=== PATIENT | female | born 1980 | race Caucasian/White ===

== ENCOUNTER 2017-02-25 19:18 | Inpatient (IN) | payer OTHER ==
[~2017-02-25] VITALS: Ht 157.5 cm; Wt 61.3 kg
[~2017-02-25 19:18] MED LIST: DEPO-PROVER150 MG/ML IM; FERROUS SULFAT325 M2 PO
[2017-02-25 21:06] LABS: BASOPHIL % 0.5 % (0-2); PLATELET COUNT 288 x10^3mcL (130-400)
[2017-02-25 21:10] LABS: CALCIUM 8.1 mg/dL (8.5-10.1); CARBON DIOXIDE 27.3 mmol/L (21-32); CHLORIDE SERUM 106 mmol/L (98-107); CREATININE SERUM 0.6 mg/dL (0.6-1.0); GFR1 > 60 mL/min; GLUCOSE SERUM 95 mg/dL (74-106); POTASSIUM SERUM 3.7 mmol/L (3.5-5.1); SODIUM SERUM 142 mmol/L (136-145)
[2017-02-25 21:11] LABS: RED CELL DISTRIBUTION WIDTH 19.3 % (11.5-14.5)
[2017-02-25 21:14] LABS: ALKALINE PHOSPHATASE 86 U/L (46-116); ALT/SGPT 25 U/L (14-59); AST/SGOT 15 U/L (15-37); BILIRUBIN TOTAL 0.4 mg/dL (0.20-1.00); TOTAL PROTEIN, SERUM 6.7 g/dL (6.4-8.2)
[2017-02-25 21:15] LABS: ALBUMIN 3.1 g/dL (3.4-5.0)
[2017-02-25 21:30] LABS: rbc morphology (normal/abnorm) ABNORMAL (NORMAL)
[2017-02-25 22:22] LABS: CHOLESTEROL/HDL RATIO 5.3
[2017-02-25 22:30] LABS: T3 TOTAL 0.84 ng/mL
[2017-02-25 22:31] LABS: FREE T4 0.86 ng/dL (0.76-1.46); FREE THYROXINE INDEX 1.9 ug/dL (1.4-4.5)
[2017-02-25 22:41] LABS: UA SPECIFIC GRAVITY 1.015 (1.005-1.035); microscopic required? YES; urine erythrocyte 1+ (NEGATIVE)
[2017-02-25 22:54] VITALS: BP 111/72
[2017-02-25 22:56] VITALS: BP 111/72
[2017-02-26] VITALS (8 sets, daily range): BP systolic 93–121; BP diastolic 55–71
[2017-02-26 05:35] LABS: BASOPHIL % 0.5 % (0-2); PLATELET COUNT 281 x10^3mcL (130-400)
[2017-02-26 05:57] LABS: CALCIUM 8.3 mg/dL (8.5-10.1); CARBON DIOXIDE 25.7 mmol/L (21-32); CHLORIDE SERUM 108 mmol/L (98-107); CREATININE SERUM 0.5 mg/dL (0.6-1.0); GFR1 > 60 mL/min; GLUCOSE SERUM 93 mg/dL (74-106); MAGNESIUM 2.1 mg/dL (1.8-2.4); PHOSPHOROUS 3.5 mg/dL (2.5-4.9); SODIUM SERUM 142 mmol/L (136-145)
[2017-02-26 07:19] LABS: RED CELL DISTRIBUTION WIDTH 19.6 % (11.5-14.5)
[2017-02-26 09:19] LABS: rbc morphology (normal/abnorm) ABNORMAL (NORMAL)
[2017-02-26 21:43] LABS: BASOPHIL % 0.1 % (0-2); PLATELET COUNT 321 x10^3mcL (130-400)
[2017-02-26 21:45] LABS: RED CELL DISTRIBUTION WIDTH 20.9 % (11.5-14.5)
[2017-02-27 06:05] VITALS: BP 125/66
[2017-02-27 07:18] LABS: BASOPHIL % 0.9 % (0-2); PLATELET COUNT 338 x10^3mcL (130-400)
[2017-02-27 07:25] LABS: CALCIUM 8.4 mg/dL (8.5-10.1); CHLORIDE SERUM 107 mmol/L (98-107); CREATININE SERUM 0.6 mg/dL (0.6-1.0); GFR1 > 60 mL/min; GLUCOSE SERUM 100 mg/dL (74-106); POTASSIUM SERUM 3.9 mmol/L (3.5-5.1); SODIUM SERUM 140 mmol/L (136-145)
[2017-02-27 07:26] LABS: ALBUMIN 3.1 g/dL (3.4-5.0); RED CELL DISTRIBUTION WIDTH 20.5 % (11.5-14.5); rbc morphology (normal/abnorm) ABNORMAL (NORMAL)
[2017-02-27 09:10] VITALS: BP 110/65
[2017-02-27 12:49] LABS: BASOPHIL % 0.5 % (0-2); PLATELET COUNT 316 x10^3mcL (130-400)
[2017-02-27 12:50] LABS: RED CELL DISTRIBUTION WIDTH 20.7 % (11.5-14.5); rbc morphology (normal/abnorm) ABNORMAL (NORMAL)
[2017-02-27] MEDS ORDERED: FERG PO (15:33)
[2017-02-27] MEDS ORDERED: VITC PO (15:33)
[2017-02-27 15:42] VITALS: BP 110/65
== END 2017-02-27 15:58 | disposition home or self-care (01) | DRG 517 ==
LOC: ED 19:18 → DU 21:42 → MU 21:42 → DU 22:49 → MU 02-26 07:54
PROVIDERS: Emergency Medicine; Family Medicine; Obstetrics & Gynecology; ADMIT Family Medicine
PROC: 0UDB7ZZ Extraction of Endometrium, Via Natural or Artificial Opening (ICD-10-PCS; 2017-02-26)
PROC: 30233N1 Transfusion of Nonautologous Red Blood Cells into Peripheral Vein, Percutaneous Approach (ICD-10-PCS; principal; 2017-02-26 11:45)
DX: N93.8 Other specified abnormal uterine and vaginal bleeding (principal); R65.10 Systemic inflammatory response syndrome (SIRS) of non-infectious origin without acute organ dysfunction; D62 Acute posthemorrhagic anemia; F17.200 Nicotine dependence, unspecified, uncomplicated; E44.1 Mild protein-calorie malnutrition; E78.5 Hyperlipidemia, unspecified; Z82.49 Family history of ischemic heart disease and other diseases of the circulatory system
CPT/HCPCS: 83880; 84439; J3010; J7030; J7050; P9016; Q0092; Q0163

== ENCOUNTER 2017-03-02 18:24 | Emergency (ER) | payer OTHER ==
[~2017-03-02 18:24] MED LIST changes: +FERG PO; +VITC PO
[2017-03-02 20:10] LABS: BASOPHIL % 0.6 % (0-2); PLATELET COUNT 360 x10^3mcL (130-400)
[2017-03-02 20:13] LABS: RED CELL DISTRIBUTION WIDTH 21.4 % (11.5-14.5)
[2017-03-02 20:18] LABS: CALCIUM 8.7 mg/dL (8.5-10.1); CARBON DIOXIDE 26.9 mmol/L (21-32); CHLORIDE SERUM 104 mmol/L (98-107); CREATININE SERUM 0.5 mg/dL (0.6-1.0); GFR1 > 60 mL/min; GLUCOSE SERUM 82 mg/dL (74-106); POTASSIUM SERUM 3.6 mmol/L (3.5-5.1); SODIUM SERUM 140 mmol/L (136-145)
[2017-03-02 20:23] LABS: ALBUMIN 3.8 g/dL (3.4-5.0); ALKALINE PHOSPHATASE 91 U/L (46-116); ALT/SGPT 28 U/L (14-59); AST/SGOT 24 U/L (15-37); BILIRUBIN TOTAL 0.83 mg/dL (0.20-1.00); TOTAL PROTEIN, SERUM 7.8 g/dL (6.4-8.2)
[2017-03-02 20:36] LABS: rbc morphology (normal/abnorm) ABNORMAL (NORMAL)
[2017-03-02 21:40] VITALS: BP 133/75
== END 2017-03-02 21:23 | disposition home or self-care (01) ==
LOC: ED 18:24
PROVIDERS: Emergency Medicine
DX: N93.8 Other specified abnormal uterine and vaginal bleeding (principal)

== ENCOUNTER 2017-04-24 15:20 | Emergency (ER) | payer OTHER | END 2017-04-24 18:21 | disposition other institution (70) | LOC: ED 15:20 | DX: Z02.89 Encounter for other administrative examinations (principal) ==

== ENCOUNTER 2017-04-24 15:20 | Emergency (ER) | payer OTHER ==
[2017-04-24 18:21] VITALS: BP 136/78
== END 2017-04-24 18:21 | disposition other institution (70) ==
LOC: ED 15:20
DX: S52.92XA Unspecified fracture of left forearm, initial encounter for closed fracture (principal); S52.022A Displaced fracture of olecranon process without intraarticular extension of left ulna, initial encounter for closed fracture; E66.9 Obesity, unspecified; Y35.891A Legal intervention involving other specified means, law enforcement official injured, initial encounter; Y93.89 Activity, other specified; Y92.89 Other specified places as the place of occurrence of the external cause; Y99.8 Other external cause status
CPT/HCPCS: 90715; J1885; J3010; Q0162

== ENCOUNTER 2017-06-03 18:53 | Emergency (ER) | payer OTHER ==
[2017-06-03 20:26] LABS: AMPHETAMINE QUAL UR NONE DETECTED (NEG <=1000)
[2017-06-03 20:36] LABS: PLATELET COUNT 413 x10^3mcL (130-400); RED CELL DISTRIBUTION WIDTH 19.2 % (11.5-14.5)
[2017-06-03 20:40] LABS: CALCIUM 8.9 mg/dL (8.5-10.1); CHLORIDE SERUM 106 mmol/L (98-107); CREATININE SERUM 0.6 mg/dL (0.6-1.0); GFR1 > 60 mL/min; GLUCOSE SERUM 92 mg/dL (74-106); SODIUM SERUM 141 mmol/L (136-145)
[2017-06-03 20:46] LABS: ALBUMIN 3.4 g/dL (3.4-5.0); ALKALINE PHOSPHATASE 102 U/L (46-116); ALT/SGPT 51 U/L (14-59); AST/SGOT 11 U/L (15-37); BILIRUBIN TOTAL 0.49 mg/dL (0.20-1.00); TOTAL PROTEIN, SERUM 7.8 g/dL (6.4-8.2)
[2017-06-03 20:51] LABS: rbc morphology (normal/abnorm) ABNORMAL (NORMAL)
[2017-06-04 15:00] VITALS: BP 133/78
== END 2017-06-04 15:00 ==
LOC: ED 18:53
PROVIDERS: Emergency Medicine
DX: R45.851 Suicidal ideations (principal); F32.9 Major depressive disorder, single episode, unspecified
CPT/HCPCS: 36415; G0480

== ENCOUNTER 2017-08-29 20:55 | Emergency (ER) | payer OTHER ==
[2017-08-29 22:06] LABS: BASOPHIL % 0.2 % (0-2); PLATELET COUNT 375 x10^3mcL (130-400)
[2017-08-29 22:12] LABS: RED CELL DISTRIBUTION WIDTH 18.7 % (11.5-14.5)
[2017-08-29 22:48] LABS: UA SPECIFIC GRAVITY <=1.005 (1.005-1.035); microscopic required? YES; urine erythrocyte 3+ (NEGATIVE)
[2017-08-30 07:16] VITALS: BP 123/57
== END 2017-08-30 03:30 | disposition home or self-care (01) ==
LOC: ED 20:55
PROVIDERS: Emergency Medicine
DX: N93.8 Other specified abnormal uterine and vaginal bleeding (principal); D64.9 Anemia, unspecified
CPT/HCPCS: J1200; J2405; J7040; P9016

== ENCOUNTER 2017-09-04 09:25 | Emergency (ER) | payer OTHER ==
[~2017-09-04] VITALS: Ht 162.6 cm; Wt 78.0 kg
[2017-09-04 11:52] LABS: BASOPHIL % 0.7 % (0-2); PLATELET COUNT 365 x10^3mcL (130-400)
[2017-09-04 11:54] LABS: RED CELL DISTRIBUTION WIDTH 22.9 % (11.5-14.5)
[2017-09-04 12:11] LABS: UA SPECIFIC GRAVITY >=1.030 (1.005-1.035)
[2017-09-04 12:12] LABS: microscopic required? YES; urine erythrocyte 3+ (NEGATIVE)
[2017-09-04 12:57] VITALS: BP 119/75
[2017-09-04 12:59] LABS: CALCIUM 9.1 mg/dL (8.5-10.1); CARBON DIOXIDE 27.8 mmol/L (21-32); CHLORIDE SERUM 105 mmol/L (98-107); CREATININE SERUM 0.7 mg/dL (0.6-1.0); GFR1 > 60 mL/min; GLUCOSE SERUM 92 mg/dL (74-106); POTASSIUM SERUM 3.6 mmol/L (3.5-5.1); SODIUM SERUM 139 mmol/L (136-145)
== END 2017-09-04 13:06 | disposition home or self-care (01) ==
LOC: ED 09:25
PROVIDERS: Emergency Medicine
DX: N92.0 Excessive and frequent menstruation with regular cycle (principal); D64.9 Anemia, unspecified
CPT/HCPCS: 36415; Q0092

== ENCOUNTER 2017-09-04 18:07 | Inpatient (IN) | payer OTHER ==
[~2017-09-04] VITALS: Ht 162.6 cm; Wt 78.1 kg
[2017-09-04 19:44] LABS: BASOPHIL % 0.5 % (0-2); PLATELET COUNT 336 x10^3mcL (130-400)
[2017-09-04 19:58] LABS: CALCIUM 8.6 mg/dL (8.5-10.1); CARBON DIOXIDE 24.1 mmol/L (21-32); CHLORIDE SERUM 106 mmol/L (98-107); CREATININE SERUM 0.6 mg/dL (0.6-1.0); GFR1 > 60 mL/min; GLUCOSE SERUM 98 mg/dL (74-106); POTASSIUM SERUM 3.7 mmol/L (3.5-5.1); SODIUM SERUM 139 mmol/L (136-145)
[2017-09-04 19:58] LABS: AMPHETAMINE QUAL UR NONE DETECTED (NEG <=1000)
[2017-09-04 20:02] LABS: ALBUMIN 3.5 g/dL (3.4-5.0); ALKALINE PHOSPHATASE 82 U/L (46-116); ALT/SGPT 46 U/L (14-59); AST/SGOT 26 U/L (15-37); TOTAL PROTEIN, SERUM 7.8 g/dL (6.4-8.2)
[2017-09-04 20:03] LABS: RED CELL DISTRIBUTION WIDTH 23.3 % (11.5-14.5)
[2017-09-05 01:43] LABS: CHOLESTEROL/HDL RATIO 5.8; MAGNESIUM 2.3 mg/dL (1.8-2.4); PHOSPHOROUS 3.6 mg/dL (2.5-4.9)
[2017-09-05 02:13] LABS: FREE T4 0.92 ng/dL (0.76-1.46); FREE THYROXINE INDEX 2.6 ug/dL (1.4-4.5)
[2017-09-05 06:46] LABS: T3 TOTAL 1.3 ng/mL
[2017-09-05 08:30] VITALS: BP 105/62
[2017-09-05 12:59] VITALS: BP 108/64
[2017-09-05 17:58] VITALS: BP 118/70
[2017-09-05 22:41] VITALS: BP 109/62
[2017-09-06 00:33] LABS: CALCIUM 8.7 mg/dL (8.5-10.1); CARBON DIOXIDE 26.7 mmol/L (21-32); CHLORIDE SERUM 108 mmol/L (98-107); CREATININE SERUM 0.6 mg/dL (0.6-1.0); GFR1 > 60 mL/min; GLUCOSE SERUM 98 mg/dL (74-106); POTASSIUM SERUM 3.4 mmol/L (3.5-5.1); SODIUM SERUM 140 mmol/L (136-145)
[2017-09-06 05:06] VITALS: BP 107/53
[2017-09-06 06:10] LABS: BASOPHIL % 0.6 % (0-2); PLATELET COUNT 343 x10^3mcL (130-400)
[2017-09-06 06:27] LABS: RED CELL DISTRIBUTION WIDTH 23.2 % (11.5-14.5)
[2017-09-06 06:35] LABS: CALCIUM 8.4 mg/dL (8.5-10.1); CARBON DIOXIDE 28.2 mmol/L (21-32); CHLORIDE SERUM 108 mmol/L (98-107); CREATININE SERUM 0.7 mg/dL (0.6-1.0); GFR1 > 60 mL/min; GLUCOSE SERUM 99 mg/dL (74-106); MAGNESIUM 2.3 mg/dL (1.8-2.4); PHOSPHOROUS 3.5 mg/dL (2.5-4.9); POTASSIUM SERUM 3.5 mmol/L (3.5-5.1); SODIUM SERUM 140 mmol/L (136-145)
[2017-09-06 08:03] VITALS: BP 100/59
[2017-09-06 10:20] VITALS: Ht 162.6 cm; Wt 78.1 kg
[2017-09-06 12:10] VITALS: BP 96/57
[2017-09-06 16:34] VITALS: BP 138/65
[2017-09-06 21:12] VITALS: BP 115/67
[2017-09-07 05:44] VITALS: BP 107/62
[2017-09-07 08:25] LABS: BASOPHIL % 0.5 % (0-2); PLATELET COUNT 375 x10^3mcL (130-400)
[2017-09-07 08:29] LABS: RED CELL DISTRIBUTION WIDTH 23.4 % (11.5-14.5)
[2017-09-07 09:00] VITALS: BP 113/56
[2017-09-07 10:09] LABS: rbc morphology (normal/abnorm) ABNORMAL (NORMAL)
[2017-09-07 16:31] VITALS: BP 113/63
[2017-09-08 01:22] VITALS: BP 112/57
[2017-09-08 06:32] VITALS: BP 106/61
[2017-09-08 08:00] VITALS: BP 96/47
[2017-09-08 08:31] LABS: PLATELET COUNT 328 x10^3mcL (130-400)
[2017-09-08 08:37] LABS: RED CELL DISTRIBUTION WIDTH 23.2 % (11.5-14.5)
[2017-09-08 09:21] VITALS: BP 100/56
[2017-09-08 12:01] LABS: ATYPICAL LYMPH 2 %; BAND NEUTROPHIL 1 % (0-10); MONOCYTE 4 % (0-7); SEGMENTED NEUTROPHILS 73 % (37-75); rbc morphology (normal/abnorm) ABNORMAL (NORMAL)
[2017-09-08 12:02] LABS: PLATELET MORPHOLOGY PLATELETS NORMAL
[2017-09-08 12:03] VITALS: BP 101/56
[2017-09-08 15:49] LABS: PLATELET COUNT 327 x10^3mcL (130-400)
[2017-09-08 15:56] LABS: RED CELL DISTRIBUTION WIDTH 23.4 % (11.5-14.5)
[2017-09-08 16:15] LABS: BASOPHIL 1 % (0-2); MONOCYTE 4 % (0-7); SEGMENTED NEUTROPHILS 70 % (37-75); rbc morphology (normal/abnorm) ABNORMAL (NORMAL)
[2017-09-08 16:33] VITALS: BP 103/64
[2017-09-09 05:29] VITALS: BP 114/61
[2017-09-09 06:40] LABS: CALCIUM 8.5 mg/dL (8.5-10.1); CARBON DIOXIDE 26.1 mmol/L (21-32); CHLORIDE SERUM 106 mmol/L (98-107); CREATININE SERUM 0.6 mg/dL (0.6-1.0); GFR1 > 60 mL/min; GLUCOSE SERUM 91 mg/dL (74-106); MAGNESIUM 2.1 mg/dL (1.8-2.4); PHOSPHOROUS 2.9 mg/dL (2.5-4.9); POTASSIUM SERUM 3.2 mmol/L (3.5-5.1); SODIUM SERUM 142 mmol/L (136-145)
[2017-09-09 06:43] LABS: PLATELET COUNT 329 x10^3mcL (130-400)
[2017-09-09 06:49] LABS: RED CELL DISTRIBUTION WIDTH 22.8 % (11.5-14.5)
[2017-09-09 09:01] LABS: rbc morphology (normal/abnorm) ABNORMAL (NORMAL); tear drop cell (dacryocyte) 1+
[2017-09-09 09:43] VITALS: BP 104/49
[2017-09-09 12:45] VITALS: BP 107/61
[2017-09-09 22:09] VITALS: BP 101/59
[2017-09-10 05:19] VITALS: BP 99/53
[2017-09-10 06:21] LABS: CALCIUM 8.6 mg/dL (8.5-10.1); CARBON DIOXIDE 27.6 mmol/L (21-32); CHLORIDE SERUM 107 mmol/L (98-107); CREATININE SERUM 0.6 mg/dL (0.6-1.0); GFR1 > 60 mL/min; GLUCOSE SERUM 87 mg/dL (74-106); POTASSIUM SERUM 3.9 mmol/L (3.5-5.1); SODIUM SERUM 142 mmol/L (136-145)
[2017-09-10 07:12] LABS: BASOPHIL % 0.4 % (0-2); PLATELET COUNT 310 x10^3mcL (130-400)
[2017-09-10 07:14] LABS: RED CELL DISTRIBUTION WIDTH 25.1 % (11.5-14.5)
[2017-09-10 07:17] LABS: rbc morphology (normal/abnorm) ABNORMAL (NORMAL); tear drop cell (dacryocyte) 1+
[2017-09-10 07:30] LABS: RED BLOOD CELLS 2.92 M/mm3 (4.10-5.10)
[2017-09-10 09:22] VITALS: BP 108/57
[2017-09-10 17:33] VITALS: BP 110/60
[2017-09-10 20:18] VITALS: BP 109/72
[2017-09-10 20:37] VITALS: BP 101/56
[2017-09-11 05:46] VITALS: BP 107/63
[2017-09-11 07:14] LABS: BASOPHIL % 0.4 % (0-2); PLATELET COUNT 316 x10^3mcL (130-400)
[2017-09-11 07:18] LABS: RED CELL DISTRIBUTION WIDTH 28.3 % (11.5-14.5)
[2017-09-11 07:26] LABS: CALCIUM 8.7 mg/dL (8.5-10.1); CHLORIDE SERUM 104 mmol/L (98-107); CREATININE SERUM 0.6 mg/dL (0.6-1.0); GFR1 > 60 mL/min; GLUCOSE SERUM 72 mg/dL (74-106); MAGNESIUM 2.1 mg/dL (1.8-2.4); POTASSIUM SERUM 3.5 mmol/L (3.5-5.1); SODIUM SERUM 136 mmol/L (136-145); rbc morphology (normal/abnorm) ABNORMAL (NORMAL)
[2017-09-11 07:27] LABS: tear drop cell (dacryocyte) 1+
[2017-09-11 10:28] VITALS: BP 100/58
[2017-09-11 14:53] VITALS: BP 82/37
[2017-09-11 17:53] VITALS: BP 92/37
[2017-09-11 22:46] VITALS: BP 117/71
[2017-09-12 06:05] VITALS: BP 109/64
[2017-09-12 07:09] LABS: BASOPHIL % 0.5 % (0-2); PLATELET COUNT 311 x10^3mcL (130-400)
[2017-09-12 07:16] LABS: RED CELL DISTRIBUTION WIDTH 33.1 % (11.5-14.5)
[2017-09-12 07:17] LABS: rbc morphology (normal/abnorm) ABNORMAL (NORMAL); tear drop cell (dacryocyte) 1+
[2017-09-12 08:54] VITALS: BP 100/55
[2017-09-12 17:04] VITALS: BP 104/58
[2017-09-12 21:12] VITALS: BP 94/63
[2017-09-13 04:41] VITALS: BP 111/63
[2017-09-13 06:47] LABS: BASOPHIL % 0.5 % (0-2); PLATELET COUNT 307 x10^3mcL (130-400)
[2017-09-13 08:47] VITALS: BP 101/53
[2017-09-13 10:37] LABS: rbc morphology (normal/abnorm) ABNORMAL (NORMAL)
[2017-09-13 10:38] LABS: tear drop cell (dacryocyte) 2+
[2017-09-13 16:30] VITALS: BP 101/61
[2017-09-13 20:32] VITALS: BP 115/71
[2017-09-14 05:56] VITALS: BP 110/64
[2017-09-14 06:33] LABS: BASOPHIL % 0.6 % (0-2); PLATELET COUNT 301 x10^3mcL (130-400)
[2017-09-14 16:36] VITALS: BP 110/64
[2017-09-14] MEDS ORDERED: SERTRALINE50 M1 PO (16:38)
[2017-09-14] MEDS ORDERED: QUETIAPINE FUMA25 M1 PO (16:38)
[2017-09-14] MEDS ORDERED: AMB5 PO (16:39)
== END 2017-09-14 18:13 | DRG 751 ==
LOC: ED 18:07 → DU 09-05 00:05 → MU 09-06 17:27
PROVIDERS: Emergency Medicine; Family Medicine; Family Medicine Sports Medicine; ADMIT Family Medicine
DX: F33.9 Major depressive disorder, recurrent, unspecified (principal); R45.851 Suicidal ideations; F17.210 Nicotine dependence, cigarettes, uncomplicated; E78.2 Mixed hyperlipidemia; D50.9 Iron deficiency anemia, unspecified; N92.0 Excessive and frequent menstruation with regular cycle; Z68.28 Body mass index [BMI] 28.0-28.9, adult
CPT/HCPCS: 83880; 84439; 94150; G0480; J1050; J1410; J2916; J7030; Q0092

== ENCOUNTER 2018-02-21 05:55 | Inpatient (IN) | payer OTHER ==
[~2018-02-21] VITALS: Ht 162.6 cm; Wt 71.0 kg
[~2018-02-21 05:55] MED LIST changes: +AMB5 PO; +QUETIAPINE FUMA25 M1 PO; +SERTRALINE50 M1 PO
[2018-02-21 06:41] LABS: microscopic required? NO
[2018-02-21 06:48] LABS: BASOPHIL % 0.4 % (0-2); PLATELET COUNT 337 x10^3mcL (130-400)
[2018-02-21 07:08] LABS: RED CELL DISTRIBUTION WIDTH 16.6 % (11.5-14.5)
[2018-02-21 07:09] LABS: rbc morphology (normal/abnorm) ABNORMAL (NORMAL)
[2018-02-21 07:12] LABS: CALCIUM 8.7 mg/dL (8.5-10.1); CREATININE SERUM 0.6 mg/dL (0.6-1.0); GFR1 > 60 mL/min; POTASSIUM SERUM 3.7 mmol/L (3.5-5.1); SODIUM SERUM 135 mmol/L (136-145)
[2018-02-21 07:17] LABS: ALBUMIN 3.6 g/dL (3.4-5.0); ALKALINE PHOSPHATASE 91 U/L (46-116); ALT/SGPT 30 U/L (14-59); AST/SGOT 17 U/L (15-37); BILIRUBIN TOTAL 0.57 mg/dL (0.20-1.00); TOTAL PROTEIN, SERUM 7.8 g/dL (6.4-8.2)
[2018-02-21 07:24] LABS: CARBON DIOXIDE 23.1 mmol/L (21-32); CHLORIDE SERUM 102 mmol/L (98-107); GLUCOSE SERUM 98 mg/dL (74-106)
[2018-02-21 07:48] LABS: AMPHETAMINE QUAL UR NONE DETECTED (NEG <=1000)
[2018-02-21 07:49] LABS: urine erythrocyte NEGATIVE (NEGATIVE)
[2018-02-21 10:00] LABS: T3 TOTAL 1.12 ng/mL
[2018-02-21 10:15] LABS: FREE T4 0.89 ng/dL (0.76-1.46); MAGNESIUM 2.1 mg/dL (1.8-2.4); PHOSPHOROUS 3.8 mg/dL (2.5-4.9); T4(THYROXINE) 6.4 ug/dL (4.7-13.3)
[2018-02-21 10:16] LABS: CHOLESTEROL/HDL RATIO 5.3
[2018-02-21 20:59] VITALS: BP 140/68
[2018-02-22 04:54] VITALS: BP 107/65
[2018-02-22 06:31] LABS: BASOPHIL % 0.4 % (0-2); PLATELET COUNT 335 x10^3mcL (130-400)
[2018-02-22 06:35] LABS: CARBON DIOXIDE 25.2 mmol/L (21-32); CHLORIDE SERUM 103 mmol/L (98-107); CREATININE SERUM 0.6 mg/dL (0.6-1.0); GFR1 > 60 mL/min; GLUCOSE SERUM 97 mg/dL (74-106); MAGNESIUM 2.3 mg/dL (1.8-2.4); PHOSPHOROUS 4.5 mg/dL (2.5-4.9); POTASSIUM SERUM 3.8 mmol/L (3.5-5.1); SODIUM SERUM 138 mmol/L (136-145)
[2018-02-22 06:37] LABS: RED CELL DISTRIBUTION WIDTH 16.5 % (11.5-14.5)
[2018-02-22 08:20] VITALS: BP 115/72
[2018-02-22 17:58] VITALS: BP 111/66
[2018-02-22 20:18] VITALS: BP 116/74
[2018-02-23 04:52] VITALS: Ht 162.6 cm; Wt 71.0 kg
[2018-02-23 05:39] VITALS: BP 110/70
[2018-02-23 08:57] VITALS: BP 124/79
[2018-02-23 14:41] VITALS: BP 108/72
[2018-02-23 18:37] VITALS: BP 113/71
[2018-02-23 22:42] VITALS: BP 106/78
[2018-02-24 06:36] VITALS: BP 113/75
[2018-02-24 09:01] VITALS: BP 122/74
[2018-02-24 13:50] VITALS: BP 124/71
[2018-02-24 17:30] VITALS: BP 121/73
[2018-02-24 20:58] VITALS: BP 119/78
[2018-02-25 06:39] VITALS: BP 101/59
[2018-02-25 09:31] VITALS: BP 108/58
[2018-02-25 13:28] VITALS: BP 97/54
[2018-02-25 20:07] VITALS: BP 120/74
[2018-02-26 05:30] VITALS: BP 97/57
[2018-02-26 10:25] VITALS: BP 111/80
[2018-02-26 17:20] VITALS: BP 114/71
[2018-02-27 05:47] VITALS: BP 111/72
[2018-02-27 07:53] LABS: BASOPHIL % 0.4 % (0-2); PLATELET COUNT 317 x10^3mcL (130-400)
[2018-02-27 07:57] LABS: RED CELL DISTRIBUTION WIDTH 16.4 % (11.5-14.5)
[2018-02-27 07:58] LABS: rbc morphology (normal/abnorm) ABNORMAL (NORMAL)
[2018-02-27 08:24] LABS: CALCIUM 8.7 mg/dL (8.5-10.1); CHLORIDE SERUM 102 mmol/L (98-107); CREATININE SERUM 0.6 mg/dL (0.6-1.0); GFR1 > 60 mL/min; GLUCOSE SERUM 91 mg/dL (74-106); MAGNESIUM 2.1 mg/dL (1.8-2.4); PHOSPHOROUS 4.6 mg/dL (2.5-4.9); POTASSIUM SERUM 3.8 mmol/L (3.5-5.1); SODIUM SERUM 136 mmol/L (136-145)
[2018-02-27 09:50] VITALS: BP 106/70
[2018-02-27 14:15] LABS: IRON 20 ug/dL (50-170); TOTAL IRON BINDING CAPACITY 449 ug/dL (250-450)
[2018-02-27 14:27] LABS: RED BLOOD CELLS 4.72 M/mm3 (4.10-5.10)
[2018-02-27 17:50] VITALS: BP 107/73
[2018-02-27 21:58] VITALS: BP 105/73
[2018-02-28 06:41] VITALS: BP 107/69
[2018-02-28 09:41] VITALS: BP 94/60
[2018-02-28 17:38] VITALS: BP 118/76
[2018-02-28 21:04] VITALS: BP 120/70
[2018-03-01 05:34] VITALS: BP 106/75
[2018-03-01 08:06] VITALS: BP 95/54
[2018-03-01] MEDS ORDERED: PROZAC40 MG PO (12:06)
[2018-03-01] MEDS ORDERED: ABILIFY10 M2 PO (12:06)
== END 2018-03-01 13:05 | disposition home or self-care (01) | DRG 751 ==
LOC: ED 05:55 → DU 17:25 → EDBEDREQ 17:25 → MU 17:25 → DU 20:52 → MU 02-22 07:56
PROVIDERS: Family Medicine; Family Medicine Sports Medicine; Specialist
DX: F33.2 Major depressive disorder, recurrent severe without psychotic features (principal); E87.1 Hypo-osmolality and hyponatremia; R45.851 Suicidal ideations; E04.1 Nontoxic single thyroid nodule; E78.5 Hyperlipidemia, unspecified; R73.03 Prediabetes; N92.0 Excessive and frequent menstruation with regular cycle; F17.210 Nicotine dependence, cigarettes, uncomplicated; D64.9 Anemia, unspecified; Z53.29 Procedure and treatment not carried out because of patient's decision for other reasons; D72.829 Elevated white blood cell count, unspecified; F10.10 Alcohol abuse, uncomplicated; Z82.49 Family history of ischemic heart disease and other diseases of the circulatory system
CPT/HCPCS: 83880; 84439; C1729; G0480; Q0092

== ENCOUNTER 2018-04-28 15:30 | Inpatient (IN) | payer OTHER ==
[~2018-04-28] VITALS: Ht 162.6 cm; Wt 82.1 kg
[~2018-04-28 15:30] MED LIST changes: +ABILIFY10 M2 PO; +ABILIFY20 M1 PO; +PROZ20 PO; +PROZAC40 MG PO
[2018-04-28 16:45] LABS: BASOPHIL % 0.4 % (0-2); PLATELET COUNT 384 x10^3mcL (130-400)
[2018-04-28 16:51] LABS: CALCIUM 9.4 mg/dL (8.5-10.1); CHLORIDE SERUM 106 mmol/L (98-107); CREATININE SERUM 0.6 mg/dL (0.6-1.0); GFR1 > 60 mL/min; GLUCOSE SERUM 99 mg/dL (74-106); POTASSIUM SERUM 3.6 mmol/L (3.5-5.1); SODIUM SERUM 142 mmol/L (136-145)
[2018-04-28 16:55] LABS: ALBUMIN 3.6 g/dL (3.4-5.0); ALKALINE PHOSPHATASE 120 U/L (46-116); ALT/SGPT 42 U/L (14-59); AST/SGOT 24 U/L (15-37); BILIRUBIN TOTAL 0.76 mg/dL (0.20-1.00); TOTAL PROTEIN, SERUM 8.2 g/dL (6.4-8.2)
[2018-04-28 16:56] LABS: RED CELL DISTRIBUTION WIDTH 17.9 % (11.5-14.5)
[2018-04-28 16:59] LABS: AMPHETAMINE QUAL UR NONE DETECTED (See below)
[2018-04-28 17:06] LABS: FREE T4 0.94 ng/dL (0.76-1.46); FREE THYROXINE INDEX 2.4 ug/dL (1.4-4.5); T4(THYROXINE) 7.6 ug/dL (4.7-13.3)
[2018-04-28 17:33] LABS: T3 TOTAL 1.03 ng/mL
[2018-04-28] MEDS ORDERED: NATURAL IRON65 MG (21:56)
[2018-04-28 23:39] VITALS: BP 117/73
[2018-04-29 01:10] LABS: MAGNESIUM 2.1 mg/dL (1.8-2.4); PHOSPHOROUS 3.9 mg/dL (2.5-4.9)
[2018-04-29 08:42] VITALS: BP 110/65
[2018-04-29 12:38] VITALS: BP 109/66
[2018-04-29 18:00] VITALS: BP 91/63
[2018-04-29 18:03] LABS: microscopic required? NO
[2018-04-29 18:13] LABS: UA SPECIFIC GRAVITY 1.025 (1.005-1.035); urine erythrocyte NEGATIVE (NEGATIVE)
[2018-04-29 22:10] VITALS: BP 109/70
[2018-04-30 06:03] VITALS: BP 115/62
[2018-04-30 10:59] VITALS: BP 101/68
[2018-04-30 13:24] VITALS: BP 112/64
[2018-04-30 17:43] VITALS: BP 115/70
[2018-04-30 21:38] VITALS: BP 116/78
[2018-05-01 05:45] VITALS: BP 102/62
[2018-05-01 13:55] VITALS: BP 118/56
[2018-05-01 16:29] VITALS: BP 105/64
[2018-05-01 22:19] VITALS: BP 112/76
[2018-05-02 06:52] VITALS: BP 102/68
[2018-05-02 09:10] VITALS: BP 111/62
[2018-05-02 18:46] VITALS: BP 113/68
[2018-05-02 23:01] VITALS: BP 123/70
[2018-05-03 05:51] VITALS: BP 117/71
[2018-05-03 15:00] VITALS: BP 110/71
[2018-05-03 22:05] VITALS: BP 111/56
[2018-05-04 06:05] VITALS: BP 102/61
[2018-05-04 11:03] VITALS: BP 108/56
[2018-05-04 20:45] VITALS: BP 115/69
[2018-05-05 05:44] VITALS: BP 107/72
[2018-05-05 09:36] VITALS: BP 108/58
[2018-05-05 16:06] VITALS: BP 102/57
[2018-05-05 21:05] VITALS: BP 128/71
[2018-05-06 09:53] VITALS: BP 107/53
[2018-05-06 17:06] VITALS: BP 116/60
[2018-05-06 21:17] VITALS: BP 117/60
[2018-05-07 05:53] VITALS: BP 123/64
[2018-05-07 16:45] VITALS: BP 117/76
[2018-05-07 20:08] VITALS: BP 122/72
[2018-05-08 05:22] VITALS: BP 106/66
[2018-05-08 17:58] VITALS: BP 112/72
[2018-05-08 17:59] VITALS: BP 117/72
[2018-05-08 20:44] VITALS: BP 135/73
[2018-05-09 04:16] VITALS: BP 112/70
[2018-05-09 09:15] VITALS: BP 106/59
[2018-05-09 17:28] VITALS: BP 120/63
[2018-05-09 19:24] VITALS: BP 115/73
[2018-05-10 06:03] VITALS: BP 105/65
[2018-05-10 09:34] VITALS: BP 96/55
[2018-05-10 15:52] VITALS: BP 122/76
[2018-05-10 21:49] VITALS: BP 95/72
[2018-05-11 06:01] VITALS: BP 97/65
[2018-05-11] MEDS ORDERED: FER300 PO (19:19)
[2018-05-11] MEDS ORDERED: VITC PO (19:19)
[2018-05-11] MEDS ORDERED: ABILIFY10 M2 PO (19:19)
[2018-05-11] MEDS ORDERED: PROZ20 PO (19:19)
[2018-05-11 19:35] VITALS: BP 97/65
== END 2018-05-11 20:07 | disposition home or self-care (01) | DRG 52 ==
LOC: ED 15:30 → DU 22:19 → MU 22:19 → DU 23:29 → MU 05-01 19:39
PROVIDERS: Emergency Medicine; Family Medicine
DX: G93.41 Metabolic encephalopathy (principal); R45.851 Suicidal ideations; K76.0 Fatty (change of) liver, not elsewhere classified; F31.63 Bipolar disorder, current episode mixed, severe, without psychotic features; D64.9 Anemia, unspecified; R73.03 Prediabetes; E78.5 Hyperlipidemia, unspecified; E66.9 Obesity, unspecified; Z68.30 Body mass index [BMI] 30.0-30.9, adult; E04.1 Nontoxic single thyroid nodule; F15.93 Other stimulant use, unspecified with withdrawal; F17.210 Nicotine dependence, cigarettes, uncomplicated; F41.8 Other specified anxiety disorders; Z72.89 Other problems related to lifestyle; Z79.899 Other long term (current) drug therapy; Z91.14 Patient's other noncompliance with medication regimen
CPT/HCPCS: 83880; 84439; G0480; J7030; Q0092

== ENCOUNTER 2018-06-18 21:08 | Emergency (ER) | payer OTHER ==
[~2018-06-18] VITALS: Ht 162.6 cm; Wt 83.5 kg
[~2018-06-18 21:08] MED LIST changes: +FER300 PO; +NATURAL IRON65 MG
[2018-06-18 21:16] VITALS: Ht 162.6 cm; Wt 83.5 kg
[2018-06-19 00:37] LABS: BASOPHIL % 0.9 % (0-2); PLATELET COUNT 323 x10^3mcL (130-400)
[2018-06-19 00:43] LABS: RED CELL DISTRIBUTION WIDTH 23.5 % (11.5-14.5)
[2018-06-19 00:44] LABS: CALCIUM 8.1 mg/dL (8.5-10.1); CARBON DIOXIDE 22.7 mmol/L (21-32); CHLORIDE SERUM 106 mmol/L (98-107); CREATININE SERUM 0.6 mg/dL (0.6-1.0); GFR1 > 60 mL/min; GLUCOSE SERUM 89 mg/dL (74-106); POTASSIUM SERUM 3.4 mmol/L (3.5-5.1); SODIUM SERUM 142 mmol/L (136-145)
[2018-06-19 00:50] LABS: ALBUMIN 3.6 g/dL (3.4-5.0); ALKALINE PHOSPHATASE 90 U/L (46-116); ALT/SGPT 70 U/L (14-59); AST/SGOT 39 U/L (15-37); BILIRUBIN TOTAL 0.44 mg/dL (0.20-1.00); TOTAL PROTEIN, SERUM 7.7 g/dL (6.4-8.2)
[2018-06-19 02:09] LABS: rbc morphology (normal/abnorm) ABNORMAL (NORMAL)
[2018-06-19 02:10] LABS: tear drop cell (dacryocyte) 1+
[2018-06-19 14:38] LABS: AMPHETAMINE QUAL UR NONE DETECTED (See below)
[2018-06-19 19:26] VITALS: BP 125/81
== END 2018-06-19 19:24 ==
LOC: ED 21:08
PROVIDERS: Emergency Medicine
DX: R45.851 Suicidal ideations (principal); F41.9 Anxiety disorder, unspecified; F32.9 Major depressive disorder, single episode, unspecified; Z86.2 Personal history of diseases of the blood and blood-forming organs and certain disorders involving the immune mechanism
CPT/HCPCS: 36415; G0480; Q0092

== ENCOUNTER 2018-06-30 17:19 | Inpatient (IN) | payer OTHER ==
[~2018-06-30] VITALS: Ht 162.6 cm; Wt 82.1 kg
[2018-06-30 18:37] LABS: BASOPHIL % 0.4 % (0-2); PLATELET COUNT 325 x10^3mcL (130-400)
[2018-06-30 18:43] LABS: RED CELL DISTRIBUTION WIDTH 23.9 % (11.5-14.5)
[2018-06-30 18:53] LABS: CARBON DIOXIDE 22.8 mmol/L (21-32); CHLORIDE SERUM 104 mmol/L (98-107); CREATININE SERUM 0.7 mg/dL (0.6-1.0); GFR1 > 60 mL/min; GLUCOSE SERUM 81 mg/dL (74-106); POTASSIUM SERUM 3.5 mmol/L (3.5-5.1); SODIUM SERUM 138 mmol/L (136-145)
[2018-06-30 18:56] LABS: ALBUMIN 3.8 g/dL (3.4-5.0); ALKALINE PHOSPHATASE 98 U/L (46-116); ALT/SGPT 53 U/L (14-59); AST/SGOT 32 U/L (15-37)
[2018-06-30 18:57] LABS: TOTAL PROTEIN, SERUM 8.5 g/dL (6.4-8.2)
[2018-06-30 19:23] LABS: AMPHETAMINE QUAL UR NONE DETECTED (See below)
[2018-07-01 20:35] VITALS: BP 124/79
[2018-07-02 06:06] VITALS: BP 112/67
[2018-07-02 10:05] VITALS: BP 95/45
[2018-07-02 13:32] VITALS: BP 128/70
[2018-07-02 18:14] VITALS: BP 120/68
[2018-07-02 21:07] VITALS: BP 110/63
[2018-07-03 05:58] VITALS: BP 97/66
[2018-07-03 09:09] VITALS: BP 111/70
[2018-07-03 14:40] VITALS: BP 118/70
[2018-07-03 17:23] VITALS: BP 112/65
[2018-07-03 20:48] VITALS: BP 115/65
[2018-07-03 21:00] VITALS: BP 125/82
[2018-07-04 05:29] VITALS: BP 100/62
[2018-07-04 09:55] VITALS: BP 104/65
[2018-07-04 18:02] VITALS: BP 109/68
[2018-07-04 20:52] VITALS: BP 115/70
[2018-07-05 05:29] VITALS: BP 104/64
[2018-07-05 08:39] VITALS: BP 104/73
[2018-07-05 16:01] VITALS: BP 111/68
== END 2018-07-05 18:50 | disposition left against medical advice (07) | DRG 751 ==
LOC: ED 17:19 → MU 07-01 16:21
PROVIDERS: Emergency Medicine
DX: F32.2 Major depressive disorder, single episode, severe without psychotic features (principal); R45.851 Suicidal ideations; D64.9 Anemia, unspecified; F41.9 Anxiety disorder, unspecified; Z53.21 Procedure and treatment not carried out due to patient leaving prior to being seen by health care provider; F17.210 Nicotine dependence, cigarettes, uncomplicated; Z82.49 Family history of ischemic heart disease and other diseases of the circulatory system
CPT/HCPCS: G0480

== ENCOUNTER 2018-08-16 16:09 | Emergency (ER) | payer OTHER ==
[~2018-08-16] VITALS: Ht 162.6 cm; Wt 83.5 kg
[2018-08-16 16:17] VITALS: BP 126/79
[2018-08-16 17:14] LABS: BASOPHIL % 0.4 % (0-2); PLATELET COUNT 329 x10^3mcL (130-400)
[2018-08-16 17:18] LABS: RED CELL DISTRIBUTION WIDTH 18.3 % (11.5-14.5)
== END 2018-08-16 18:25 | disposition home or self-care (01) ==
LOC: ED 16:09
PROVIDERS: Emergency Medicine
DX: N92.0 Excessive and frequent menstruation with regular cycle (principal); F17.210 Nicotine dependence, cigarettes, uncomplicated; F41.9 Anxiety disorder, unspecified
CPT/HCPCS: 36415; 99406

== ENCOUNTER 2019-02-22 16:33 | Inpatient (IN) | payer OTHER ==
[~2019-02-22] VITALS: Ht 162.6 cm; Wt 80.0 kg
[2019-02-22 17:41] LABS: PLATELET COUNT 412 x10^3mcL (130-400); RED CELL DISTRIBUTION WIDTH 16.3 % (11.5-14.5)
[2019-02-22 17:45] LABS: CALCIUM 9.2 mg/dL (8.5-10.1); CARBON DIOXIDE 26.8 mmol/L (21-32); CHLORIDE SERUM 104 mmol/L (98-107); CREATININE SERUM 0.6 mg/dL (0.6-1.0); GFR1 > 60 mL/min; GLUCOSE SERUM 109 mg/dL (74-106); POTASSIUM SERUM 3.3 mmol/L (3.5-5.1); SODIUM SERUM 140 mmol/L (136-145)
[2019-02-22 17:50] LABS: ALBUMIN 3.8 g/dL (3.4-5.0); ALKALINE PHOSPHATASE 108 U/L (46-116); ALT/SGPT 30 U/L (14-59); AST/SGOT 16 U/L (15-37); BILIRUBIN TOTAL 0.8 mg/dL (0.20-1.00); TOTAL PROTEIN, SERUM 8.5 g/dL (6.4-8.2)
[2019-02-22 18:01] LABS: UA SPECIFIC GRAVITY >=1.030 (1.005-1.035); microscopic required? YES; urine erythrocyte 2+ (NEGATIVE)
[2019-02-22 18:06] LABS: AMPHETAMINE QUAL UR NONE DETECTED (See below)
[2019-02-23 17:37] VITALS: BP 113/68
[2019-02-23 17:43] VITALS: Ht 162.6 cm; Wt 80.0 kg
[2019-02-23 20:51] VITALS: BP 113/67
[2019-02-24 06:15] LABS: CALCIUM 8.8 mg/dL (8.5-10.1); CARBON DIOXIDE 25.3 mmol/L (21-32); CHLORIDE SERUM 103 mmol/L (98-107); CREATININE SERUM 0.6 mg/dL (0.6-1.0); GFR1 > 60 mL/min; GLUCOSE SERUM 159 mg/dL (74-106); MAGNESIUM 2.3 mg/dL (1.8-2.4); PHOSPHOROUS 3.6 mg/dL (2.5-4.9); SODIUM SERUM 139 mmol/L (136-145)
[2019-02-24 06:45] LABS: BASOPHIL % 0.4 % (0-2); PLATELET COUNT 373 x10^3mcL (130-400)
[2019-02-24 06:54] LABS: RED CELL DISTRIBUTION WIDTH 15.9 % (11.5-14.5)
[2019-02-24 09:30] VITALS: BP 128/74
[2019-02-24 12:18] LABS: CHOLESTEROL/HDL RATIO 6.4; MAGNESIUM 2.3 mg/dL (1.8-2.4); PHOSPHOROUS 3.7 mg/dL (2.5-4.9)
[2019-02-24 18:06] VITALS: BP 113/68
[2019-02-24 21:00] VITALS: BP 110/62
[2019-02-25 06:07] VITALS: BP 111/68
[2019-02-25 09:09] VITALS: BP 99/58
[2019-02-25 10:04] LABS: CALCIUM 9.1 mg/dL (8.5-10.1); CARBON DIOXIDE 24.5 mmol/L (21-32); CHLORIDE SERUM 106 mmol/L (98-107); CREATININE SERUM 0.6 mg/dL (0.6-1.0); GFR1 > 60 mL/min; GLUCOSE SERUM 107 mg/dL (74-106); MAGNESIUM 2.3 mg/dL (1.8-2.4); PHOSPHOROUS 4.3 mg/dL (2.5-4.9); POTASSIUM SERUM 3.5 mmol/L (3.5-5.1); SODIUM SERUM 140 mmol/L (136-145)
[2019-02-25 12:30] LABS: BASOPHIL % 0.5 % (0-2); PLATELET COUNT 394 x10^3mcL (130-400)
[2019-02-25 12:48] LABS: RED CELL DISTRIBUTION WIDTH 16.3 % (11.5-14.5)
[2019-02-25 17:19] VITALS: BP 112/66
[2019-02-25 21:21] VITALS: BP 117/68
[2019-02-26 05:45] VITALS: BP 104/70
[2019-02-26 09:56] VITALS: BP 88/44
[2019-02-26 11:59] VITALS: BP 120/70
[2019-02-26 17:28] VITALS: BP 115/68
[2019-02-26 21:10] VITALS: BP 118/69
[2019-02-27 05:47] VITALS: BP 110/65
[2019-02-27 09:00] VITALS: BP 106/58
[2019-02-27 17:30] VITALS: BP 119/65
[2019-02-27 19:46] VITALS: BP 108/72
[2019-02-28 06:24] VITALS: BP 100/65
[2019-02-28 18:00] VITALS: BP 134/59
[2019-02-28 22:00] VITALS: BP 119/47
[2019-03-01 06:04] VITALS: BP 107/88
[2019-03-01 10:01] VITALS: BP 107/69
[2019-03-01 18:12] VITALS: BP 126/78
[2019-03-01 21:09] VITALS: BP 117/65
[2019-03-02 06:10] VITALS: BP 103/61
[2019-03-02 09:15] VITALS: BP 110/65
[2019-03-02 17:18] VITALS: BP 122/71
[2019-03-02 23:52] VITALS: BP 117/64
[2019-03-03 06:02] VITALS: BP 131/73
[2019-03-03 07:22] LABS: CALCIUM 8.8 mg/dL (8.5-10.1); CARBON DIOXIDE 24.8 mmol/L (21-32); CHLORIDE SERUM 105 mmol/L (98-107); CREATININE SERUM 0.6 mg/dL (0.6-1.0); GFR1 > 60 mL/min; GLUCOSE SERUM 117 mg/dL (74-106); MAGNESIUM 2.3 mg/dL (1.8-2.4); POTASSIUM SERUM 3.5 mmol/L (3.5-5.1); SODIUM SERUM 141 mmol/L (136-145)
[2019-03-03 07:54] LABS: BASOPHIL % 0.4 % (0-2); PLATELET COUNT 397 x10^3mcL (130-400)
[2019-03-03 07:59] LABS: RED CELL DISTRIBUTION WIDTH 15.9 % (11.5-14.5)
[2019-03-03 18:37] VITALS: BP 128/78
[2019-03-03 19:55] VITALS: BP 105/61
[2019-03-04 05:57] VITALS: BP 106/61
[2019-03-04 06:20] LABS: BASOPHIL % 0.4 % (0-2)
[2019-03-04 07:24] LABS: PLATELET COUNT 406 x10^3mcL (130-400); RED CELL DISTRIBUTION WIDTH 16.5 % (11.5-14.5)
[2019-03-04 07:33] VITALS: BP 112/64
[2019-03-04 07:41] LABS: CALCIUM 8.9 mg/dL (8.5-10.1); CARBON DIOXIDE 26.5 mmol/L (21-32); CHLORIDE SERUM 105 mmol/L (98-107); CREATININE SERUM 0.6 mg/dL (0.6-1.0); GFR1 > 60 mL/min; GLUCOSE SERUM 105 mg/dL (74-106); POTASSIUM SERUM 4.1 mmol/L (3.5-5.1); SODIUM SERUM 143 mmol/L (136-145)
[2019-03-04 19:37] VITALS: BP 133/66
[2019-03-05 04:41] VITALS: BP 100/62
[2019-03-05 09:08] VITALS: BP 111/58
[2019-03-05 19:33] VITALS: BP 125/70
[2019-03-06 05:50] VITALS: BP 108/71
[2019-03-06 08:30] VITALS: BP 121/66
[2019-03-06 16:51] VITALS: BP 121/66
== END 2019-03-06 19:47 | disposition psychiatric hospital, planned readmission (93) | DRG 751 ==
LOC: ED 16:33 → MU 02-23 16:41
PROVIDERS: Emergency Medicine; Family Medicine; ADMIT Internal Medicine
DX: F33.9 Major depressive disorder, recurrent, unspecified (principal); N17.0 Acute kidney failure with tubular necrosis; F20.9 Schizophrenia, unspecified; D50.9 Iron deficiency anemia, unspecified; R45.851 Suicidal ideations; F17.210 Nicotine dependence, cigarettes, uncomplicated; E87.6 Hypokalemia; R80.9 Proteinuria, unspecified; D72.829 Elevated white blood cell count, unspecified; F41.9 Anxiety disorder, unspecified; Z68.34 Body mass index [BMI] 34.0-34.9, adult; Z82.49 Family history of ischemic heart disease and other diseases of the circulatory system; Z72.89 Other problems related to lifestyle
CPT/HCPCS: 82962; G0480; J3480; J7030

== ENCOUNTER 2019-07-26 19:25 | Emergency (ER) | payer OTHER ==
[~2019-07-26] VITALS: Ht 162.6 cm; Wt 83.6 kg
[2019-07-26 21:49] VITALS: BP 130/74
== END 2019-07-26 21:49 | disposition home or self-care (01) ==
LOC: ED 19:25
DX: H57.89 Other specified disorders of eye and adnexa (principal); L91.8 Other hypertrophic disorders of the skin; F41.9 Anxiety disorder, unspecified; F32.9 Major depressive disorder, single episode, unspecified
CPT/HCPCS: J2001

== ENCOUNTER 2019-11-23 16:45 | Emergency (ER) | payer OTHER ==
[~2019-11-23] VITALS: Ht 162.6 cm; Wt 81.6 kg
[2019-11-23 17:06] VITALS: Ht 162.6 cm; Wt 81.6 kg
[2019-11-23 21:11] LABS: BASOPHIL % 0.7 % (0-2); PLATELET COUNT 296 x10^3mcL (130-400); RED CELL DISTRIBUTION WIDTH 13.4 % (11.5-14.5)
[2019-11-23 21:15] LABS: CALCIUM 9.3 mg/dL (8.5-10.1); CARBON DIOXIDE 30.8 mmol/L (21-32); CHLORIDE SERUM 100 mmol/L (98-107); CREATININE SERUM 0.6 mg/dL (0.6-1.0); GFR1 > 60 mL/min; GLUCOSE SERUM 80 mg/dL (74-106); POTASSIUM SERUM 3.5 mmol/L (3.5-5.1); SODIUM SERUM 137 mmol/L (136-145)
[2019-11-23 22:19] VITALS: BP 113/63
== END 2019-11-23 22:19 | disposition home or self-care (01) ==
LOC: ED 16:45
PROVIDERS: Emergency Medicine
DX: J06.9 Acute upper respiratory infection, unspecified (principal); Z86.79 Personal history of other diseases of the circulatory system; Z98.890 Other specified postprocedural states
CPT/HCPCS: 36415; 87804; J1885

== ENCOUNTER 2020-10-16 18:18 | Emergency (ER) | payer OTHER ==
[~2020-10-16] VITALS: Ht 162.6 cm; Wt 80.7 kg
[2020-10-16 19:16] VITALS: Ht 162.6 cm; Wt 80.7 kg
[2020-10-16 20:11] LABS: BASOPHIL % 0.4 % (0-2)
[2020-10-16 20:14] LABS: CALCIUM 8.5 mg/dL (8.5-10.1); CARBON DIOXIDE 26.8 mmol/L (21-32); CHLORIDE SERUM 103 mmol/L (98-107); CREATININE SERUM 0.6 mg/dL (0.6-1.0); GFR1 > 60 mL/min; GLUCOSE SERUM 97 mg/dL (74-106); PLATELET COUNT 421 x10^3mcL (130-400); POTASSIUM SERUM 3.1 mmol/L (3.5-5.1); RED CELL DISTRIBUTION WIDTH 15.6 % (11.5-14.5); SODIUM SERUM 137 mmol/L (136-145)
[2020-10-16 20:18] LABS: ALBUMIN 3.6 g/dL (3.4-5.0); ALKALINE PHOSPHATASE 118 U/L (46-116); ALT/SGPT 26 U/L (14-59); AST/SGOT 17 U/L (15-37); BILIRUBIN TOTAL 0.6 mg/dL (0.20-1.00); TOTAL PROTEIN, SERUM 7.7 g/dL (6.4-8.2)
[2020-10-16 21:14] VITALS: BP 110/87
== END 2020-10-16 21:14 | disposition home or self-care (01) ==
LOC: ED 18:18
PROVIDERS: Specialist
DX: D50.0 Iron deficiency anemia secondary to blood loss (chronic) (principal); N92.0 Excessive and frequent menstruation with regular cycle; Z98.890 Other specified postprocedural states

== ENCOUNTER 2020-10-22 17:58 | Emergency (ER) | payer OTHER ==
[~2020-10-22] VITALS: Ht 162.6 cm; Wt 80.3 kg
[2020-10-22 18:29] VITALS: BP 111/70; Ht 162.6 cm; Wt 80.3 kg
[2020-10-22 20:24] LABS: BASOPHIL % 0.4 % (0-2); PLATELET COUNT 366 x10^3mcL (130-400)
[2020-10-22 20:47] LABS: CALCIUM 9.1 mg/dL (8.5-10.1); CARBON DIOXIDE 27.3 mmol/L (21-32); CHLORIDE SERUM 104 mmol/L (98-107); CREATININE SERUM 0.9 mg/dL (0.6-1.0); GFR1 > 60 mL/min; GLUCOSE SERUM 88 mg/dL (74-106); POTASSIUM SERUM 3.4 mmol/L (3.5-5.1); SODIUM SERUM 139 mmol/L (136-145)
[2020-10-22 20:52] LABS: ALBUMIN 3.6 g/dL (3.4-5.0); ALKALINE PHOSPHATASE 99 U/L (46-116); ALT/SGPT 29 U/L (14-59); AST/SGOT 13 U/L (15-37); BILIRUBIN TOTAL 0.94 mg/dL (0.20-1.00); TOTAL PROTEIN, SERUM 7.8 g/dL (6.4-8.2)
== END 2020-10-23 02:33 | disposition left against medical advice (07) ==
LOC: ED 17:58
PROVIDERS: Emergency Medicine
DX: N93.9 Abnormal uterine and vaginal bleeding, unspecified (principal); R42 Dizziness and giddiness

== ENCOUNTER 2020-10-23 02:50 | Emergency (ER) | payer OTHER ==
[~2020-10-23] VITALS: Ht 162.6 cm; Wt 76.2 kg
[2020-10-23 03:23] VITALS: Ht 162.6 cm; Wt 76.2 kg
[2020-10-23 10:15] VITALS: BP 107/62
== END 2020-10-23 10:48 | disposition home or self-care (01) ==
LOC: ED 02:50
DX: R42 Dizziness and giddiness (principal); N93.8 Other specified abnormal uterine and vaginal bleeding; N93.9 Abnormal uterine and vaginal bleeding, unspecified; D64.9 Anemia, unspecified
CPT/HCPCS: J7030; P9016

== ENCOUNTER 2021-01-30 16:15 | Emergency (ER) | payer OTHER ==
[~2021-01-30] VITALS: Ht 162.6 cm; Wt 80.3 kg
[2021-01-30 16:34] VITALS: BP 121/64
[2021-01-30 17:07] LABS: BASOPHIL % 0.9 % (0.2-1.3)
[2021-01-30 17:10] LABS: PLATELET COUNT 401 x10^3mcL (179-408); RED CELL DISTRIBUTION WIDTH 14.8 % (12.3-17.7)
[2021-01-30 17:14] LABS: CARBON DIOXIDE 26.5 mmol/L (21-32); CHLORIDE SERUM 104 mmol/L (98-107); CREATININE SERUM 0.6 mg/dL (0.6-1.0); GFR1 > 60 mL/min; GLUCOSE SERUM 112 mg/dL (74-106); POTASSIUM SERUM 3.4 mmol/L (3.5-5.1); SODIUM SERUM 140 mmol/L (136-145)
[2021-01-30 17:21] LABS: ALBUMIN 3.5 g/dL (3.4-5.0); ALKALINE PHOSPHATASE 97 U/L (46-116); ALT/SGPT 34 U/L (14-59); AST/SGOT 25 U/L (15-37); BILIRUBIN TOTAL 0.4 mg/dL (0.20-1.00); TOTAL PROTEIN, SERUM 8.1 g/dL (6.4-8.2)
[2021-01-30] MEDS ORDERED: PROV5 PO (17:28)
== END 2021-01-30 17:39 | disposition home or self-care (01) ==
LOC: ED 16:15
PROVIDERS: Emergency Medicine
DX: D64.9 Anemia, unspecified (principal)